=== PATIENT | female | born 1965 | race Caucasian/White ===

== ENCOUNTER 2021-03-03 10:48 | Outpatient (CLI) | payer BC | END 2021-03-03 10:49 | disposition home or self-care (01) | LOC: CSHMAMMO 10:48 | PROVIDERS: ATTEND Obstetrics & Gynecology | DX: Z12.31 Encounter for screening mammogram for malignant neoplasm of breast (principal) | CPT/HCPCS: 77063; 77067 ==

== ENCOUNTER 2023-03-14 13:56 | Outpatient (CLI) | payer BC | END 2023-03-14 13:57 | disposition home or self-care (01) | LOC: CSHMAMMO 13:56 | PROVIDERS: ATTEND Obstetrics & Gynecology | DX: Z12.31 Encounter for screening mammogram for malignant neoplasm of breast (principal) | CPT/HCPCS: 77063; 77067 ==

== ENCOUNTER 2024-04-23 13:49 | Outpatient (CLI) | payer BC | END 2024-04-23 13:50 | disposition home or self-care (01) | LOC: CSHMAMMO 13:49 | PROVIDERS: ATTEND Obstetrics & Gynecology | DX: Z12.31 Encounter for screening mammogram for malignant neoplasm of breast (principal) | CPT/HCPCS: 77063; 77067 ==